=== PATIENT | female | born 1955 | race Caucasian/White ===

== ENCOUNTER → 2016-12-17 | Outpatient (CLI) | payer OTHER ==
[~2016-12-17] MED LIST: ASPIRIN81 M2 PO; ATORVASTATIN CA10 MG PO; GLUCOPHAGE500 MG PO; IMDUR-ER30 M3 PO; METOPROLOL SUCC25 MG PO; NITROSTAT0.4 MG SL; PEPCID AC20 MG PO
--- NOTE | ~2016-12-17 | CO ---
Unit #: [id number] #: [id number] Patient: GAGANDEEP BLACKMON [id number] [address] [place], [place] [address] [id number] O MR#: [id number] NAME: GAGANDEEP BLACKMON ROOM: Age: 61 Sex: F Admission Date: 12/17/2016 : 1955 Attending Physician: Js Brewer M.D. Primary Care Physician: No Primary Care Physician CONSULTATION REPORT REASON FOR CONSULT Chest tightness. HISTORY Ms. Blackmon is a 61-year-old white female who retired from [employer] in 2013 and since then has had multiple health difficulties. She underwent a lithotripsy in May 2016 and following that procedure complained of chest tightness for which she was evaluated by Dr. Elmer Marin at [facility] and an echocardiogram was done which showed no significant abnormalities. There is disputed history whether she had a cardiac catheterization there or not. According to her , no invasive procedures were performed but the patient thinks otherwise. She continued to do well, was admitted to this hospital for an outpatient bone biopsy because of proteinuria and renal dysfunction. As the patient came out of sedation, she complained of a pressure-like heaviness in the mid anterior chest without any radiation to the neck, jaw, back and there was no accompanying diaphoresis, dyspnea, nausea, vomiting, or palpitations. We were asked to see her. On direct questioning, the patient states she has had multiple episodes of tightness in the chest which occur usually on exertion of working with her hands above her shoulders, occasionally when she is shopping in a grocery store, frequently in the early hours of the morning she is awakened from sleep with chest tightness which is not accompanied by any dyspnea but occasionally with diaphoresis. There is no radiation of this tightness to the jaw, shoulders, back, or the elbows and there are no accompanying palpitations. She had never been told to have a CT, stroke, or transient ischemic attacks. She denies any history of ankle edema, orthopnea, nocturnal dyspnea. PAST MEDICAL HISTORY 1. Hypertension. 2. Adult-onset noninsulin diabetes mellitus. 3. Hyperlipidemia. 4. Renal calculi. 5. Lately renal insufficiency and proteinuria. SOCIAL AND PERSONAL HISTORY She is a lifetime nonsmoker and drinks an alcoholic beverage on rare occasions. FAMILY HISTORY Her mother suffers from mitral valve prolapse and aortic valve disease but there is no history of coronary artery disease at a premature age in any of the immediate family members. Unit #: [id number] #: [id number] Patient: GAGANDEEP BLACKMON PHYSICAL EXAMINATION GENERAL: Reveals a middle-aged female in no acute distress. There is no jugular venous distention. Both carotids have a normal upstroke without any bruits. Pedal pulses are normal. CARDIAC: Shows apical impulse is normal. Both heart sounds are normal. No rubs or clicks are audible. There is no murmur. CHEST: Shows normal to palpation, percussion, and auscultation. ABDOMEN: Shows soft, nontender anterior abdominal wall. There are no masses or organomegaly. RECTAL: Not done. CENTRAL NERVOUS SYSTEM: Within normal limits. DIAGNOSTIC STUDIES CARDIOVASCULAR: EKG shows normal sinus rhythm and nonspecific T-wave changes in inferior and lateral leads. Echocardiogram done in February 2016, showed normal left ventricular systolic function with ejection fraction of 55% to 60%. There were no significant valve abnormalities. Right ventricular pressures could not be calculated because no significant tricuspid regurgitation was noted. The rest of the lab investigations are not available. DIAGNOSES 1. Chest pain, etiology undetermined. Cannot rule out significant ischemic heart disease. 2. Rule out multiple myeloma. 3. Hypertension. 4. Hyperlipidemia. 5. Diabetes mellitus. PLAN Cardiac enzymes have been drawn. If normal, the patient would be allowed to go home. An exercise Cardiolite scan would be scheduled for the th of this month. If abnormal, she may need further workup and treatment. Dictated by... Kellee Tom TD: 12/17/2016 16:43 JOB #: [id number] CC: Js Brewer M.D. CONSULTATION REPORT X Meek Pitt MD X CONSULTATION REPORT
--- NOTE | ~2016-12-17 | CR48 ---
[facility] A Service of [facility] RADIOLOGY TEXT RESULTS PATIENT: GAGANDEEP CHUN LOCATION: CIVR : 53 UNIT #: [id number] AGE: [address]: Js Brewer MD SEX: F ORDER DR: [id number] [facility] [address]. [place], [place] [address] [id number] O MR#: [id number] Acc #: [id number] NAME: GAGANDEEP CHUN : 1955 SEX: F STUDY DATE/TIME: 12/17/2016 7:30 UNIT: [facility] ROOM: STUDY DESCRIPTION: CR Bone Survey Attending Physician: Js Brewer M.D. Ordering Physician: Js Brewer M.D. Primary Care Physician: No Primary Care Physician MEDICAL IMAGING REPORT This report is preliminary unless electronic signature is present EXAM Bone survey 12/17/2016, 07:47 hours. HISTORY 61-year-old with monoclonal gammopathy. New diagnosis. Evaluate for bone lesions. Pre bone marrow biopsy today. COMPARISON Prior films including CT abdomen and pelvis 02/07/2015, abdominal film 10/27/2016 and chest film 09/18/2015. FINDINGS Lateral view of the calvaria demonstrates no bone lesions. Multiple dental implants are noted. Upright chest film demonstrates no lesions in the clavicles or ribs. Spinal fusion hardware is present in the lower cervical spine. The right and left humeri are normal. Pelvis film demonstrates mild degenerative change at the sacroiliac joints and right greater than left hip. No lytic or blastic lesions. Facet degenerative changes are noted at the lumbosacral junction. Left and right femurs are normal. Cervical spine demonstrates degenerative change multiple levels, including C3-4, C4-5 with anterior fusion from C5-C7 with anterior plate screw fixator in anatomic alignment. No lytic or blastic lesions are seen. AP and lateral views of the thoracic spine demonstrate anterior flowing osteophytes in the lower thoracic spine. No fracture. No lytic or blastic lesion. [facility] A Service of [facility] RADIOLOGY TEXT RESULTS PATIENT: GAGANDEEP CHUN LOCATION: [facility] : 53 UNIT #: [id number] AGE: [address]: Js Brewer MD SEX: F ORDER DR: AP and lateral views of the lumbar spine demonstrate significant facet degenerative change in the lower lumbar levels. There is no fracture or lytic or blastic lesion. IMPRESSION The bone survey demonstrates a scattered areas of degenerative osteoarthritic type changes and degenerative disc disease in the spine. There are no fractures. There are no lytic or blastic lesions seen. Dictated by... Patricia Mann M.D. THIS IS AN ELECTRONICALLY VERIFIED REPORT Patricia Mann M.D. at 12/17/2016 2:27 PM ALANNAH/delmy TD: 12/17/2016 12:03 JOB #: [id number] MEDICAL IMAGING REPORT COPY
--- NOTE | ~2016-12-17 | EKG ---
PATIENT: GAGANDEEP CHUN UNIT #: [id number] Ventricular Rate: 61 BPM Atrial Rate: 61 BPM P-R Interval: 142 ms QRS Duration: 70 ms Q-T Interval: 418 ms QTC Calculation(Bezet): 420 ms P [place]: 39 degrees Calculated R [place]: 5 degrees Calculated T [place]: 5 degrees Diagnosis Line: Normal sinus rhythm Diagnosis Line: Normal ECG Diagnosis Line: No previous ECGs available Diagnosis Line: Confirmed by COLTEN GREY MD ([id number]) on 12/17/2016 Diagnosis Line: 6:26:07 PM INTERPRETING MD: MATILDA VOSS
--- NOTE | ~2016-12-17 | CT134 ---
[facility] A Service of [facility] RADIOLOGY TEXT RESULTS PATIENT: GAGANDEEP CHUN LOCATION: CIVR : 53 UNIT #: [id number] AGE: [address]: Js Brewer MD SEX: F ORDER DR: [id number] [address] [id number] [facility]. [place], [place] [address] [id number] O MR#: [id number] Acc #: [id number] NAME: GAGANDEEP CHUN : 1955 SEX: F STUDY DATE/TIME: 12/17/2016 8:47 UNIT: CIVR ROOM: STUDY DESCRIPTION: CT Guide Attending Physician: Js Brewer M.D. Ordering Physician: Js Brewer M.D. Primary Care Physician: No Primary Care Physician MEDICAL IMAGING REPORT This report is preliminary unless electronic signature is present EXAM CT-guided bone marrow biopsy INDICATION Monoclonal gammopathy of uncertain significance. TECHNIQUE This CT exam was performed with one or more of the following radiation dose reduction techniques: automatic control, adjustment of mA and/or kV according to patient size, and iterative reconstruction. FINDINGS The risks, benefits, and alternatives to the procedure were explained to the patient, and signed, informed consent was obtained. She was placed prone on the CT scanner gantry preliminary CT scan was performed through the region of interest and appropriate site overlying the patient's left iliac bone was selected the overlying skin was marked. Patient was prepped and draped in usual sterile fashion. Time-out was performed as per protocol skin and subcutaneous tissues were anesthetized with buffered lidocaine. The bone marrow biopsy needle was advanced into the left iliac bone repeat CT scan confirmed appropriate position of the needle which was then advanced into bone marrow, bone marrow aspirate was obtained. Needle was advanced further into the bone marrow and removed which appeared to yield an adequate core sample. Manual pressure was then applied until hemostasis was obtained. Patient tolerated the procedure well. She did receive conscious sedation consisting of 4 mg of Versed and 150 mcg of Fentanyl and continuous monitoring was provided throughout the procedure. IMPRESSION 1. Technically successful CT-guided bone marrow biopsy and aspiration is noted above CT was used during the procedure and permanent images were saved. 2. Of note following the procedure the patient did complain of chest STS. [facility] A Service of [facility] RADIOLOGY TEXT RESULTS PATIENT: GAGANDEEP CHUN LOCATION: [facility] : 53 UNIT #: [id number] AGE: [address]: Js Brewer MD SEX: F ORDER DR: pain rating 9/10. She was hemodynamically stable and reports that she has had similar symptomatology following other procedures including lithotripsy and dental work, EKG cardiac enzymes and cardiology consult have been requested. Dictated by... Lilly Garland M.D. THIS IS AN ELECTRONICALLY VERIFIED REPORT Lilly Garland M.D. at 12/23/2016 1:16 PM AFF/rnr TD: 12/18/2016 00:45 JOB #: [id number] MEDICAL IMAGING REPORT COPY
[2016-12-17 07:19] LABS: HEMATOCRIT 36.5 % (35.0-45.0); MEAN CELL VOLUME 95.6 FL (83-96); MEAN CORPUSCULAR HEMOGLOBIN 31.4 PG (28-34); MEAN CORPUSCULAR HGB CONC 32.8 g/dL (30-36); MEAN PLATELET VOLUME 7.4 FL (6.5-11.5); RED BLOOD COUNT 3.82 X10e (3.90-5.30); RED CELL DISTRIBUTION WIDTH 14.3 % (11.0-15.5); WHITE BLOOD COUNT 5.2 X10e3 (4.0-10.5)
[2016-12-17 07:44] LABS: INR 1.1; PROTHROMBIN TIME (PATIENT) 11.7 SECONDS (9.6-11.5)
[2016-12-17 11:38] LABS: %MB 2.8 % (0.0-4.0); MB 1.9 ng/ml
== END | disposition home or self-care (01) ==
LOC: CIVR 06:42
PROVIDERS: Internal Medicine Hematology & Oncology; Radiology Diagnostic Radiology
DX: D47.2 Monoclonal gammopathy (principal); R07.89 Other chest pain; I10 Essential (primary) hypertension; E78.5 Hyperlipidemia, unspecified; E11.9 Type 2 diabetes mellitus without complications; Z88.4 Allergy status to anesthetic agent; Z88.5 Allergy status to narcotic agent; Z88.8 Allergy status to other drugs, medicaments and biological substances; Z82.49 Family history of ischemic heart disease and other diseases of the circulatory system
CPT/HCPCS: 38221; G0364; 36415; 77012; 77075; 82550; 82553; 82947; 84484; 85027; 85610; 85730; 88182; 88184; 88185; 88305; 88311; 88323; 88342; 93005; 99144; 99152; 99153; J2250; J3010

== ENCOUNTER → 2016-12-20 | Outpatient (CLI) | payer OTHER ==
--- NOTE | ~2016-12-20 | ST ---
Unit #: [id number] #: [id number] Patient: GAGANDEEP CHUN [id number] [address] [address] [id number] O MR#: [id number] NAME: GAGANDEEP CHUN : 1955 SEX: F STUDY DATE/TIME: 12/20/2016 UNIT: [facility] ROOM: STUDY DESCRIPTION: Stress Test Attending Physician: Meek Pitt M.D. Referring Physician: Meek Pitt M.D. Primary Care Physician: Micah Palm M.D. CARDIOLOGY REPORT EXAM EKG Portion of an Exercise Cardiolite Stress Test REASON FOR EXAM Chest pain. DISCUSSION Baseline EKG reveals sinus rhythm with a ventricular rate of 67 beats per minute. Nonspecific ST-T wave changes noted in the inferior and anterior leads. The patient exercised on the treadmill according to Rodolfo protocol for 6 minutes 15 seconds achieving a workload of 7.0 METs. Maximal heart rate was 136 beats per minute which represents 86% of the maximum age predicted heart rate. The maximal blood pressure was 162/88 mmHg. There were no complaints of chest pain. There were no sustained arrhythmias noted. The patient did have [address] depression in the inferior and anterolateral leads which resolved in recovery. There were no complaints of chest pain but she had some mild shortness of breath. The test was stopped due to protocol completion. She was held in the Nuclear Department for review of nuclear images. She was discharged home and final report from nuclear images is pending. IMPRESSION 1. Non-diagnostic EKG portion of exercise Cardiolite stress test. 2. There were no complaints of chest pain. 3. There were no sustained arrhythmias noted. 4. The patient had [address] depression noted in the inferior and anterolateral leads which resolved in recovery. 5. Please correlate with Cardiolite images. Dictated by... Lakshmi Spangler APRN for Kellee Hidalgo TD: 12/20/2016 12:54 JOB #: [id number] Unit #: [id number] #: [id number] Patient: GAGANDEEP CHUN CARDIOLOGY REPORT X CARDIOLOGY REPORT
--- NOTE | ~2016-12-20 | TH ---
Unit #: [id number] #: [id number] Patient: GAGANDEEP CHUN [id number] [address] [address] [id number] O MR#: [id number] NAME: GAGANDEEP CHUN : 1955 SEX: F STUDY DATE/TIME: UNIT: [facility] ROOM: STUDY DESCRIPTION: Exercise stress test - nuclear Attending Physician: Meek Pitt M.D. Referring Physician: Meek Pitt M.D. Primary Care Physician: Micah Palm M.D. CARDIOLOGY REPORT PROCEDURE PERFORMED Exercise Cardiolite stress test - Nuclear portion. PROCEDURE Using technetium 99m-labeled Cardiolite, rest and stress SPECT images were obtained. Multiple SPECT images were obtained in various views, including horizontal and vertical long axis and short axis views of the left ventricle. Images were obtained by gated SPECT method. The patient was administered 10.8 mCi of Cardiolite at rest. The patient was administered 34.6 mCi of Cardiolite at peak exercise. Total exercise time is 6 minutes and 15 seconds. On the stress images, there is normal perfusion noted. The rest images show normal perfusion. Comparing the rest and stress images, there is no stress-induced ischemia noted. The left ventricular ejection fraction is calculated to be 68%. There is no focal wall motion abnormality seen. CONCLUSION 1. No stress-induced ischemia noted. 2. The left ventricular ejection fraction is calculated to be 68%. 3. There is no focal wall motion abnormality seen. 4. Normal exercise Cardiolite stress test. 5. It must be noted that the patient had significant ST depressions in the inferior and the anterolateral leads with exercise. Clinical correlation is requested. Dictated by... Kellee Hidalgo TD: 12/20/2016 10:39 JOB #: [id number] Unit #: [id number] #: [id number] Patient: GAGANDEEP CHUN CARDIOLOGY REPORT X Madisyn Castellanos MD <ELECTRONICALLY SIGNED> 04/30/17 3230 CARDIOLOGY REPORT
== END | disposition home or self-care (01) ==
LOC: CNUC 06:42
DX: R94.31 Abnormal electrocardiogram [ECG] [EKG] (principal); R07.9 Chest pain, unspecified; I10 Essential (primary) hypertension; E78.5 Hyperlipidemia, unspecified; I65.29 Occlusion and stenosis of unspecified carotid artery; E11.9 Type 2 diabetes mellitus without complications
CPT/HCPCS: 78452; 93017; A9500

== ENCOUNTER → 2017-04-19 | Outpatient (CLI) | payer OTHER ==
--- NOTE | ~2017-04-19 | EKG ---
PATIENT: GAGANDEEP CHUN UNIT #: [id number] Ventricular Rate: 67 BPM Atrial Rate: 67 BPM P-R Interval: 132 ms QRS Duration: 64 ms Q-T Interval: 398 ms QTC Calculation(Bezet): 420 ms P [place]: 50 degrees Calculated R [place]: 14 degrees Calculated T [place]: 15 degrees Diagnosis Line: Normal sinus rhythm Diagnosis Line: Nonspecific ST and T wave abnormality Diagnosis Line: Abnormal ECG Diagnosis Line: When compared with ECG of 17-DEC-2016 10:08, Diagnosis Line: No significant change was found Diagnosis Line: Confirmed by ADONIS RENDON MD ([id number]) on Diagnosis Line: 04/19/2017 4:25:18 PM INTERPRETING MD: PACHECO
[2017-04-19 08:26] LABS: HEMATOCRIT 36.2 % (35.0-45.0); HEMOGLOBIN 12.1 gm/dL (12.0-16.0); MEAN CELL VOLUME 94.9 FL (83-96); MEAN CORPUSCULAR HEMOGLOBIN 31.6 PG (28-34); MEAN CORPUSCULAR HGB CONC 33.3 g/dL (30-36); RED BLOOD COUNT 3.81 X10e (3.90-5.30); RED CELL DISTRIBUTION WIDTH 14.7 % (11.0-15.5); WHITE BLOOD COUNT 5.5 X10e3 (4.0-10.5)
[2017-04-19 08:39] LABS: INR 1.1; PARTIAL THROMBOPLASTIN TIME 26.7 SECONDS (23.5-31.3); PROTHROMBIN TIME (PATIENT) 12.2 SECONDS (10.0-11.7)
[2017-04-19 08:59] LABS: CALCIUM SERUM 9.3 mg/dL (8.4-10.2); GLOM FILT RATE Estimated 60.4 mL/min (>60); POTASSIUM 4.4 mmol/L (3.5-5.1)
== END | disposition home or self-care (01) ==
LOC: CCVL 07:59
PROVIDERS: Internal Medicine Cardiovascular Disease
PROC: 4A023N7 Measurement of Cardiac Sampling and Pressure, Left Heart, Percutaneous Approach (ICD-10-PCS; principal; 2017-04-19)
PROC: B211YZZ Fluoroscopy of Multiple Coronary Arteries using Other Contrast (ICD-10-PCS; 2017-04-19)
PROC: B215YZZ Fluoroscopy of Left Heart using Other Contrast (ICD-10-PCS; 2017-04-19)
DX: R07.89 Other chest pain (principal); I10 Essential (primary) hypertension; E78.5 Hyperlipidemia, unspecified; E11.9 Type 2 diabetes mellitus without complications; Z79.84 Long term (current) use of oral hypoglycemic drugs; Z82.49 Family history of ischemic heart disease and other diseases of the circulatory system; Z82.3 Family history of stroke; Z83.3 Family history of diabetes mellitus; Z83.2 Family history of diseases of the blood and blood-forming organs and certain disorders involving the immune mechanism; Z82.61 Family history of arthritis; Z80.0 Family history of malignant neoplasm of digestive organs; Z88.5 Allergy status to narcotic agent; Z88.8 Allergy status to other drugs, medicaments and biological substances
CPT/HCPCS: 36415; 80048; 85027; 85610; 85730; 93005; C1769; C1887; C1894; J1644; J2250; J3010